=== PATIENT | male | born 1945 | race Caucasian/White ===

== ENCOUNTER → 2016-08-08 | Outpatient (CLI) | payer BC ==
[2016-07-26 09:51] LABS: BLOOD UREA NITROGEN 13 mg/dl (7-18); CREATININE 0.89 mg/dl (0.60-1.40)
[~2016-08-08] MED LIST: ASPI81TA28 PO; ATOR10TA88 PO; CIPR-255 PO; DICL75TA2 PO; DILT300C35 PO; DIPH-437 PO; LEVO175T3 PO; LSN/10125 PO; MULT-506 PO; OPTIRAY 320 IV PRN; VTMD1000 PO
--- NOTE | 2016-08-08 09:57 | DIAGNOSTIC IMAGING REPORT ---
ABDOMEN AND PELVIS CT WITH AND WITHOUT IV CONTRAST, UROGRAM PROTOCOL CT DOSE: 1777.78 mGy.cm HISTORY: Bladder cancer. TECHNIQUE: Multiaxial CT images of the abdomen and pelvis were performed both before and after the use of intravenous contrast to evaluate the urinary system. Maximal intensity projection images were performed at the workstation by the radiologist. COMPARISON STUDY: IVP 02/17/2016. Abdomen and pelvis CT 12/15/2014. FINDINGS: No renal or ureteral calculi. No hydronephrosis. No suspicious filling defects seen within the bilateral renal collecting systems, ureters, or bladder. The lung bases are clear. The liver, spleen, gallbladder, pancreas, kidneys, and adrenal glands are within normal limits. No bowel wall thickening or obstruction. The pelvic organs are unremarkable. No suspicious lytic or blastic osseous lesions. Tiny fat-containing umbilical hernia. Small fat-containing bilateral inguinal hernias. Colonic diverticulosis. Mild mesenteric fat stranding and a few prominent mesenteric lymph nodes are similar to the prior study. This favors a mild mesenteric panniculitis. IMPRESSION: 1. No renal or ureteral stones. No hydronephrosis. 2. No suspicious filling defects seen within the opacified bilateral renal collecting systems, ureters, or bladder. Electronically signed by: Francisco Ritchie M.D. 08/08/2016 9:56 AM Dictated Date/Time: 08/08/2016 9:48 AM
== END | disposition home or self-care (01) ==
LOC: C.CTS 09:11
PROVIDERS: ATTEND Urology
DX: C66.9 Malignant neoplasm of unspecified ureter (principal)

== ENCOUNTER → 2017-02-13 | Outpatient (CLI) | payer BC ==
[~2017-02-13] MED LIST changes: -OPTIRAY 320 IV PRN
[2017-02-13 09:59] LABS: BLOOD UREA NITROGEN 15 mg/dl (7-18); BUN/CREATININE RATIO 17.6 (10-20); CREATININE 0.86 mg/dl (0.60-1.40)
--- NOTE | 2017-02-23 12:14 | CODING QUERY MEDICAL NECESSITY ---
SUPPORTING DIAGNOSIS NEEDED A supporting diagnosis is required for the test/procedure performed on this patient in order for us to be reimbursed by the patient's insurance. Please provide a supporting diagnosis for the following test/procedure listed below next to the test name along with your signature. *If there is no additional diagnosis for this patient that would support the following test/procedure please document that below next to the test/procedure. Test(s)/Procedure(s) that require a supporting diagnosis: * PSA DIAGNOSIS: Provider Signature: Date: Thank you Annamarie Cruz [employer] Information Management Once completed, please kindly fax back to [phone] For questions please call [phone]
== END | disposition home or self-care (01) ==
LOC: C.LAB 08:07
PROVIDERS: ATTEND Urology
DX: C66.9 Malignant neoplasm of unspecified ureter (principal)

== ENCOUNTER → 2017-02-17 | Outpatient (CLI) | payer BC ==
[~2017-02-17] MED LIST changes: +OPTIRAY 300 IV PRN
--- NOTE | 2017-02-17 14:32 | DIAGNOSTIC IMAGING REPORT ---
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 This is unaltered from the prior study. Nephrograms are symmetric. Visualized components of the ureters are unremarkable. There are no significant filling defects within the renal collecting systems. Bladder is unchanged in configuration compared to the prior studies. There are no significant filling defects. There is no significant and/or only minimal post void residual. IMPRESSION: Negative study. No change from the prior exam. The above report was generated using voice recognition software. It may contain grammatical, syntax or spelling errors. Electronically signed by: Sylvester Nichols M.D. 02/17/2017 2:27 PM Dictated Date/Time: 02/17/2017 2:22 PM
== END | disposition home or self-care (01) ==
LOC: C.RAD 13:04
PROVIDERS: ATTEND Urology
DX: C66.9 Malignant neoplasm of unspecified ureter (principal)

== ENCOUNTER 2022-12-07 17:48 | Inpatient (IN) ==
--- NOTE | 2022-12-07 18:00 | ED Triage Note ---
Date of Service December 07, 2022 History of Present Illness This patient was briefly evaluated while in triage. An abbreviated physical exam was performed. This patient is a 77-year-old Male who presents to the ED for evaluation. History is vague. Pt saw family doctor at [facility] and sent to ER for evaluation. Had some flu like symptoms over the weekend. Physical Exam Limited Triage Exam: VITALS: Vitals are noted on the nurse's note and reviewed by myself. Vital signs stable. GENERAL: White male in no acute distress and resting comfortably. Patient is cooperative with the examination. HEART: Tachy with irregular irregular LUNGS: Clear to auscultation bilaterally without wheezes, rales or rhonchi. No retractions or accessory muscle use. NEURO: Patient was alert and oriented to person place and time. CN II through XII grossly intact. Initial orders for labs and / or imaging were placed and patient was placed in the waiting area until a bed is available. Please see further documentation for the full ED course. MDM / Impression Impression Impression: Atrial fibrillation, new onset, Thrombocytopenia, Leukopenia, Weakness, Hyponatremia Impression: Leukopenia Qualifiers: Leukopenia type: neutropenia Neutropenia type: unspecified Qualified Code(s): D70.9 - Neutropenia, unspecified
--- NOTE | 2022-12-07 18:09 | Emergency Department Note ---
Impression & Plan Atrial fibrillation, new onset, Thrombocytopenia, Leukopenia, Weakness, Hyponatremia ED Provider Note NAME: SAUL PRABHAKAR JR AGE: 77 SEX: M : 1945 ARRIVES VIA: Walk-In INFORMANT: [Patient][, ] ED PROVIDER(S): [Douglas Henry MD] CHIEF COMPLAINT: Outpatient referral, concern for heartbeat MEDICAL DECISION MAKING: Patient presents as an outpatient referral. Patient did have an IV established blood work was obtained along with an EKG troponin chest x-ray. The patient is noted to be in A-fib which is new for the patient. The patient was ordered IV fluids. The patient does have leukopenia and thrombocytopenia with associated hyponatremia. This may be tickborne in nature. The patient was ordered empiric doxycycline. Phosphorus also ordered for replete meant. I did inform the patient of the findings. The patient does state that he does have a history of tick bites. I did speak the on-call hospitalist service Dr. Womack and the patient was admitted to the medicine service. Heparin drip deferred at this time given the patient's thrombocytopenia and in discussion with the admitting service. Prior /Outside records reviewed: I did review a urology visit from Dr. Mancilla. Patient does have a known history of ureter malignant neoplasm of bladder cancer. Differential diagnosis: Infection, dehydration, metabolic abnormality, hypo/hyperglycemia, electrolyte disturbance, anemia, hypoxia, irregular heartbeats, pharyngitis among others were considered Diagnostics, as interpreted by me: ECG: A-fib, rate of 108, wide QRS, left bundle branch block pattern. Cardiac monitoring: An order was placed for continuous cardiac monitoring. The monitor shows a rate of 102 with tachycardic and irregularly irregular rhythm. Patient was placed on pulse oximetry Medical decision rules: [id number] score Imaging studies: See below I informally reviewed the patient's chest x-ray. Right-sided elevation of the hemidiaphragm but no obvious pneumothorax. HPI: Patient presents as an outpatient referral due to concern for an abnormal finding after being seen in the outpatient setting today. The patient did have an EKG chest x-ray and blood work completed earlier today. The patient was unsu re as to exactly what it was but it could have been due to the irregular heartbeat. Patient denies any prior history of any A-fib. Patient denies any falls or trauma. The patient is noted to be exceptionally weak since Monday with associated sore throat. No cough or fever. The patient does notice that he is had significant difficulty with just getting up to walk because he feels so weak. Patient denies any chest pains. The patient has no orthopnea. No leg swelling. Patient does not take any blood thinner medications but does have a prior history of PEs. PAST MEDICAL HISTORY: See Below PAST SURGICAL HISTORY: See Below SOCIAL HISTORY: See Below HOME MEDICATIONS: See Below ALLERGIES: See Below VITALS: See Below PHYSICAL EXAMINATION: GENERAL: NAD, non-toxic. EYE EXAM: Normal conjunctiva. PERRL, no anisocoria and EOM's grossly intact w/o pain. Oropharynx: Posterior pharynx is clear with no tonsillar or uvular deviation. NECK: Supple, no nuchal rigidity, no adenopathy, non-tender. No signs of meningismus. FROM of the neck with good chin to chest and neck extension. No stridor. LUNGS: Clear to auscultation. Normal chest wall mechanics. HEART: Tachycardic and irregular irregular, no MRG. ABDOMEN: Abdomen soft, non-tender, no masses, no rebound or guarding. BACK: No CVA TTP. SKIN: No rashes and no bruising. UPPER EXTREMITIES: Upper extremities are grossly normal. LOWER EXTREMITIES: Grossly normal, no edema. Negative Homans' sign bilaterally. NEURO EXAM: A&O x3, cranial nerves II-XII grossly intact, normal speech, moves all 4 extremities. Past Med/Surg History Medical History Bladder cancer 2007 and has hgb treatment, Chronic back pain Hyperlipidemia Hypertension Hypothyroidism Surgical History H/O eye surgery History of carpal tunnel surgery of left wrist History of carpal tunnel surgery of right wrist History of cystoscopy TURBT Hx of colonoscopy (09/2020) S/P surgical removal of pilonidal cyst Status post surgical removal and fulguration of bladder neoplasm Family History Aunt Breast cancer Cancer Mother Diabetes Hypertension Stroke Grandmother Diabetes Father Heart disease Brother Hypertension Other Colorectal cancer Social History Smoking Status: Former smoker packs per day: 0.5; Second Hand Exposure: No; Do You Dip or Chew Tobacco: No; Hx Alcohol Use: Yes Alcohol type: beer Hx Substance Use: No Preferred Language: Macedonian Communication Ability: Effective Visual Impairment: No Limitations Hat Band Attacher Required: No Beliefs That Will Affect Care: None marital status: Current Living Situation: Spouse current occupational status: retired How many Children do You have: 2 Other Information That Helps Us Care for You: No Feels Safe at Home: Yes Safety Concerns: Feels Safe At This Time Diet: regular during the past year weight has: remained stable Assistive Devices: Denture - Upper, Denture - Lower, Glasses and Hearing Aid - Bilateral Allergies Allergies Allergy/AdvReac Type Severity Reaction Status Date / Time No Known Allergies Allergy Unknown Verified 12/07/22 19:45 Home Meds Home Medications Medication Instructions Recorded Confirmed phenazopyridine 100 mg tablet 100 mg PO TID PRN Pain 12/02/19 12/07/22 (Pyridium) aspirin 81 mg tablet,delayed 81 mg PO QAM 03/05/20 12/07/22 release (Elayne Low Dose Aspirin) atorvastatin 20 mg tablet 10 mg PO HS 03/10/20 12/07/22 cholecalciferol (vitamin D3) 50 50 mcg PO QAM 03/10/20 12/07/22 mcg (2,000 unit) capsule (Vitamin D3) diltiazem HCl 300 mg 300 mg PO QAM 03/10/20 12/07/22 tablet,extended release 24 hr garlic 1,000 mg capsule 1,000 mg PO QAM 03/10/20 12/07/22 multivitamin 2 tab PO QAM 03/10/20 12/07/22 levothyroxine 200 mcg tablet 200 mcg PO QAM 12/07/22 12/07/22 lisinopril 10 0.5 tab PO DAILY 12/07/22 12/07/22 mg-hydrochlorothiazide 12.5 mg tablet vit C-vit [id number] 1 cap PO BID 12/07/22 12/07/22 3 100 mg-15 unit-2 mg-100 mg capsule Previous Rx's Medication Instructions Recorded tamsulosin 0.4 mg capsule 0.4 mg PO DAILY #90 caps 09/26/22 Results & Data (ED) Vital Signs Vital Signs - 24 hr 12/07/22 17:57 12/07/22 18:15 12/07/22 18:23 Temperature 36.1 C L Temperature Source Temporal Artery Scan Pulse Rate 96 H 94 H Pulse Rate [Apical] Pulse Rate from SpO2 Sensor Respiratory Rate 18 Respiratory Effort / Characteristics Non-Labored Spontaneous Respiratory Depth Normal Blood Pressure 142/75 H Blood Pressure [Right Arm] Blood Pressure Mean 97 Blood Pressure Mean [Right Arm] Pulse Oximetry 94 95 Oxygen Delivery Method Room Air Room Air Sepsis Recent Fever Within 48 Hours Yes Sepsis New/Unexplained Change in Mental Status N/A Sepsis Action Taken by Nursing No Action Required 12/07/22 18:22 12/07/22 18:30 12/07/22 18:40 Temperature Temperature Source Pulse Rate 98 H 98 H 91 H Pulse Rate [Apical] Pulse Rate from SpO2 Sensor 97 H 94 H 90 Respiratory Rate 24 20 23 Respiratory Effort / Characteristics Respiratory Depth Blood Pressure Blood Pressure [Right Arm] Blood Pressure Mean Blood Pressure Mean [Right Arm] Pulse Oximetry 93 93 95 Oxygen Delivery Method Sepsis Recent Fever Within 48 Hours Sepsis New/Unexplained Change in Mental Status Sepsis Action Taken by Nursing 12/07/22 18:46 12/07/22 18:46 12/07/22 19:00 Temperature Temperature Source Pulse Rate 94 H Pulse Rate [Apical] 89 Pulse Rate from SpO2 Sensor 93 H Respiratory Rate 15 16 Respiratory Effort / Characteristics Non-Labored Respiratory Depth Normal Blood Pressure 132/80 Blood Pressure [Right Arm] 135/69 Blood Pressure Mean 97 Blood Pressure Mean [Right Arm] 91 Pulse Oximetry 94 96 Oxygen Delivery Method Room Air Sepsis Recent Fever Within 48 Hours Sepsis New/Unexplained Change in Mental Status Sepsis Action Taken by Nursing 12/07/22 18:50 12/07/22 19:00 12/07/22 19:00 Temperature Temperature Source Pulse Rate 88 94 H Pulse Rate [Apical] Pulse Rate from SpO2 Sensor 89 95 H Respiratory Rate 22 17 Respiratory Effort / Characteristics Respiratory Depth Blood Pressure 135/69 Blood Pressure [Right Arm] Blood Pressure Mean 91 Blood Pressure Mean [Right Arm] Pulse Oximetry 93 94 Oxygen Delivery Method Sepsis Recent Fever Within 48 Hours Sepsis New/Unexplained Change in Mental Status Sepsis Action Taken by Nursing 12/07/22 19:19 12/07/22 19:20 12/07/22 19:30 Temperature Temperature Source Pulse Rate 92 H 102 H Pulse Rate [Apical] Pulse Rate from SpO2 Sensor 89 101 H Respiratory Rate 15 15 Respiratory Effort / Characteristics Respiratory Depth Blood Pressure 136/82 Blood Pressure [Right Arm] Blood Pressure Mean 100 Blood Pressure Mean [Right Arm] Pulse Oximetry 95 96 Oxygen Delivery Method Sepsis Recent Fever Within 48 Hours Sepsis New/Unexplained Change in Mental Status Sepsis Action Taken by Nursing 12/07/22 19:30 12/07/22 19:40 12/07/22 19:50 Temperature Temperature Source Pulse Rate 92 H 100 H 89 Pulse Rate [Apical] Pulse Rate from SpO2 Sensor 92 H 96 H 97 H Respiratory Rate 15 22 20 Respiratory Effort / Characteristics Respiratory Depth Blood Pressure Blood Pressure [Right Arm] Blood Pressure Mean Blood Pressure Mean [Right Arm] Pulse Oximetry 94 95 96 Oxygen Delivery Method Sepsis Recent Fever Within 48 Hours Sepsis New/Unexplained Change in Mental Status Sepsis Action Taken by Nursing 12/07/22 20:00 12/07/22 20:00 12/07/22 20:10 Temperature Temperature Source Pulse Rate 91 H 94 H Pulse Rate [Apical] Pulse Rate from SpO2 Sensor 94 H 100 H Respiratory Rate 23 22 Respiratory Effort / Characteristics Respiratory Depth Blood Pressure 159/99 H Blood Pressure [Right Arm] Blood Pressure Mean 119 Blood Pressure Mean [Right Arm] Pulse Oximetry 96 96 Oxygen Delivery Method Sepsis Recent Fever Within 48 Hours Sepsis New/Unexplained Change in Mental Status Sepsis Action Taken by Skilled Nursing Medications Current Medication List: was personally reviewed by me Laboratory Data Attestation: I reviewed the patient's lab results. 12/07/22 18:10 12/07/22 18:10 Lab Results 12/07/22 12/07/22 12/07/22 Range/Units 18:10 18:10 18:10 WBC 1.81 L (4.8-10.8) K/ul RBC 4.86 (4.70-6.10) M/uL Hgb 14.8 (14.0-18.0) g/dl Hct 40.8 L (42.0-52.0) % MCV 84.0 (80.0-100.0) fL MCH 30.5 (25.0-34.0) pg MCHC 36.3 H (32.0-36.0) g/dL RDW Std Deviation 37.0 (36.4-46.3) fL RDW Coeff of Jose 12.2 (11.5-14.5) % Plt Count 54 L (130-400) K/uL MPV 12.1 (9.4-12.4) fL Immature Gran % (Auto) 0.6 % Neut % (Auto) 40.2 % Lymph % (Auto) 46.4 % [place] % (Auto) 12.2 % Eos % (Auto) 0.0 % Baso % (Auto) 0.6 % Neut # (Auto) 0.73 L* (1.40-6.50) K/uL Lymph # (Auto) 0.84 L (1.2-3.4) K/uL [place] # (Auto) 0.22 (0.11-0.59) K/uL Eos # (Auto) 0.00 (0-0.50) K/uL Baso # (Auto) 0.01 (0-0.2) K/uL Immature Gran # (Auto) 0.01 (0.01-0.20) K/uL PT 11.6 (9.0-12.0) Seconds INR 1.1 (0.9-1.1) APTT 28.5 (21.0-31.0) Seconds PTT Ratio 1.0 Sodium 128 L (136-145) mmol/L Potassium 3.7 (3.5-5.1) mmol/L Chloride 97 L (98-107) mmol/L Carbon Dioxide 23 (21-32) mmol/L Anion Gap 8 (3-11) BUN 15 (6-23) mg/dl Creatinine 0.93 (0.6-1.4) mg/dl Est Cr Clr Drug Dosing 83.0 ml/min Est GFR ( Amer) 91.5 ml/min Est GFR (Non-Af Amer) 78.9 ml/min BUN/Creatinine Ratio 16.1 (10-20) Glucose 139 H (70-99(Fasting)) mg/dl Calcium 8.7 (8.6-10.3) mg/dl Phosphorus 2.4 L (2.5-4.9) mg/dl Magnesium 1.9 (1.7-2.4) mg/dl Total Bilirubin 0.7 (0.2-1.0) mg/dl AST 60 H (13-39) U/L ALT 36 (7-52) U/L Alkaline Phosphatase 68 (34-104) U/L Troponin I High Sens 12.2 (0-20) pg/ml Total Protein 7.4 (6.0-8.3) gm/dl Albumin 4.0 (3.4-5.0) gm/dl Globulin 3.4 (2.5-4.0) gm/dl Albumin/Globulin Ratio 1.2 (0.9-2) Lipase 13 (11-82) U/L TSH (0.300-4.500) uIu/ml Urine Color Urine Appearance (Clear) Urine pH (4.5-7.5) Ur Specific [place] (1.000-1.030) Urine Protein (Negative) Urine Glucose (UA) (Negative) Urine Ketones (Negative) Urine Blood (Negative) Urine Nitrite (Negative) Urine Bilirubin (Negative) Urine Urobilinogen (Negative) Ur Leukocyte Esterase (Negative) Urine WBC (Auto) (0-5) /hpf Urine RBC (Auto) (0-4) /hpf U Hyaline Cast (Auto) (0-5) /lpf U Epithel Cells (Auto) (0-5) /lpf Urine Bacteria (Auto) (Negative) Urine Osmolality (500-800) mOsm/kg Urine Sodium mmol/L Urine Potassium mmol/L Urine Chloride mmol/L Anaplasma Smear SARS-CoV-2, RNA, NAAT (NEGATIVE) 12/07/22 12/07/22 12/07/22 Range/Units 18:10 18:10 18:10 WBC (4.8-10.8) K/ul RBC (4.70-6.10) M/uL Hgb (14.0-18.0) g/dl Hct (42.0-52.0) % MCV (80.0-100.0) fL MCH (25.0-34.0) pg MCHC (32.0-36.0) g/dL RDW Std Deviation (36.4-46.3) fL RDW Coeff of Jose (11.5-14.5) % Plt Count (130-400) K/uL MPV (9.4-12.4) fL Immature Gran % (Auto) % Neut % (Auto) % Lymph % (Auto) % [place] % (Auto) % Eos % (Auto) % Baso % (Auto) % Neut # (Auto) (1.40-6.50) K/uL Lymph # (Auto) (1.2-3.4) K/uL [place] # (Auto) (0.11-0.59) K/uL Eos # (Auto) (0-0.50) K/uL Baso # (Auto) (0-0.2) K/uL Immature Gran # (Auto) (0.01-0.20) K/uL PT (9.0-12.0) Seconds INR (0.9-1.1) APTT (21.0-31.0) Seconds PTT Ratio Sodium (136-145) mmol/L Potassium (3.5-5.1) mmol/L Chloride (98-107) mmol/L Carbon Dioxide (21-32) mmol/L Anion Gap (3-11) BUN (6-23) mg/dl Creatinine (0.6-1.4) mg/dl Est Cr Clr Drug Dosing ml/min Est GFR ( Amer) ml/min Est GFR (Non-Af Amer) ml/min BUN/Creatinine Ratio (10-20) Glucose (70-99(Fasting)) mg/dl Calcium (8.6-10.3) mg/dl Phosphorus (2.5-4.9) mg/dl Magnesium (1.7-2.4) mg/dl Total Bilirubin (0.2-1.0) mg/dl AST (13-39) U/L ALT (7-52) U/L Alkaline Phosphatase (34-104) U/L Troponin I High Sens (0-20) pg/ml Total Protein (6.0-8.3) gm/dl Albumin (3.4-5.0) gm/dl Globulin (2.5-4.0) gm/dl Albumin/Globulin Ratio (0.9-2) Lipase (11-82) U/L TSH 2.289 (0.300-4.500) uIu/ml Urine Color Urine Appearance (Clear) Urine pH (4.5-7.5) Ur Specific [place] (1.000-1.030) Urine Protein (Negative) Urine Glucose (UA) (Negative) Urine Ketones (Negative) Urine Blood (Negative) Urine Nitrite (Negative) Urine Bilirubin (Negative) Urine Urobilinogen (Negative) Ur Leukocyte Esterase (Negative) Urine WBC (Auto) (0-5) /hpf Urine RBC (Auto) (0-4) /hpf U Hyaline Cast (Auto) (0-5) /lpf U Epithel Cells (Auto) (0-5) /lpf Urine Bacteria (Auto) (Negative) Urine Osmolality (500-800) mOsm/kg Urine Sodium mmol/L Urine Potassium mmol/L Urine Chloride mmol/L Anaplasma Smear See Comment SARS-CoV-2, RNA, NAAT NEGATIVE (NEGATIVE) 12/07/22 12/07/22 12/07/22 Range/Units 19:20 19:20 19:20 WBC (4.8-10.8) K/ul RBC (4.70-6.10) M/uL Hgb (14.0-18.0) g/dl Hct (42.0-52.0) % MCV (80.0-100.0) fL MCH (25.0-34.0) pg MCHC (32.0-36.0) g/dL RDW Std Deviation (36.4-46.3) fL RDW Coeff of Jose (11.5-14.5) % Plt Count (130-400) K/uL MPV (9.4-12.4) fL Immature Gran % (Auto) % Neut % (Auto) % Lymph % (Auto) % [place] % (Auto) % Eos % (Auto) % Baso % (Auto) % Neut # (Auto) (1.40-6.50) K/uL Lymph # (Auto) (1.2-3.4) K/uL [place] # (Auto) (0.11-0.59) K/uL Eos # (Auto) (0-0.50) K/uL Baso # (Auto) (0-0.2) K/uL Immature Gran # (Auto) (0.01-0.20) K/uL PT (9.0-12.0) Seconds INR (0.9-1.1) APTT (21.0-31.0) Seconds PTT Ratio Sodium (136-145) mmol/L Potassium (3.5-5.1) mmol/L Chloride (98-107) mmol/L Carbon Dioxide (21-32) mmol/L Anion Gap (3-11) BUN (6-23) mg/dl Creatinine (0.6-1.4) mg/dl Est Cr Clr Drug Dosing ml/min Est GFR ( Amer) ml/min Est GFR (Non-Af Amer) ml/min BUN/Creatinine Ratio (10-20) Glucose (70-99(Fasting)) mg/dl Calcium (8.6-10.3) mg/dl Phosphorus (2.5-4.9) mg/dl Magnesium (1.7-2.4) mg/dl Total Bilirubin (0.2-1.0) mg/dl AST (13-39) U/L ALT (7-52) U/L Alkaline Phosphatase (34-104) U/L Troponin I High Sens (0-20) pg/ml Total Protein (6.0-8.3) gm/dl Albumin (3.4-5.0) gm/dl Globulin (2.5-4.0) gm/dl Albumin/Globulin Ratio (0.9-2) Lipase (11-82) U/L TSH (0.300-4.500) uIu/ml Urine Color Yellow Urine Appearance Clear (Clear) Urine pH 6.0 (4.5-7.5) Ur Specific [place] 1.010 (1.000-1.030) Urine Protein Trace H (Negative) Urine Glucose (UA) Negative (Negative) Urine Ketones Negative (Negative) Urine Blood 1+ H (Negative) Urine Nitrite Negative (Negative) Urine Bilirubin Negative (Negative) Urine Urobilinogen Negative (Negative) Ur Leukocyte Esterase Negative (Negative) Urine WBC (Auto) 0 (0-5) /hpf Urine RBC (Auto) 0-4 (0-4) /hpf U Hyaline Cast (Auto) 0 (0-5) /lpf U Epithel Cells (Auto) 0-5 (0-5) /lpf Urine Bacteria (Auto) Negative (Negative) Urine Osmolality 274 L (500-800) mOsm/kg Urine Sodium 32 mmol/L Urine Potassium 12.6 mmol/L Urine Chloride 35 mmol/L Anaplasma Smear SARS-CoV-2, RNA, NAAT (NEGATIVE) Administered Medications Atorvastatin Calcium (Atorvastatin 10 Mg Tab) 10 mg PO HS CARMEN Stop: 01/06/23 21:29 Last Admin: 12/07/22 22:29 Dose: 10 mg Documented By: JERSON Discontinued Medications Doxycycline Hyclate (Doxycycline Hyclate 100 Mg Cap) 100 mg PO NOW STA Stop: 12/07/22 19:22 Last Admin: 12/07/22 19:33 Dose: 100 mg Documented By: MATILDA Sodium Chloride (Nss 1000ml) 500 mls @ 999 mls/hr IV .Q31M ONE Stop: 12/07/22 19:53 Last Infusion: 12/07/22 20:06 Dose: 0 mls/hr Documented By: Admin: 12/07/22 19:33 Dose: 999 mls/hr Documented By: MATILDA Menthol (Cough Drop (Sugar Free) Galindo 24 Galindo/1 Box) 1 galindo BUCCAL NOW STA Stop: 12/07/22 19:13 Last Admin: 12/07/22 19:26 Dose: 1 galindo Documented By: MATILDA Potassium Phosphate (Pot Phosphate Monobasic W/ Sod Tab) 2 tab PO NOW STA Stop: 12/07/22 19:22 Last Admin: 12/07/22 19:33 Dose: 2 tab Documented By: MATILDA Discharge Plan Visit Data Chief Complaint: Abnormal Labs/Diagnostic Testing Stated Complaint: REF BY DOC,HEART RATE OFF ED Provider: Douglas Henry Discharge Problem: Atrial fibrillation, new onset, Thrombocytopenia, Leukopenia, Weakness, Hyponatremia Patient Disposition: Admitted As Inpatient Discharge Instructions Interventions: ED Discharge Assessment Last Done: 12/07/22 20:48
[2022-12-07 18:45] LABS: Albumin Globulin Ratio 1.2 (0.9-2); BUN Creatinine Ratio 16.1 (10-20); Bilirubin,Total 0.7 mg/dl (0.2-1.0); Calcium 8.7 mg/dl (8.6-10.3); Est GFR (African American) 91.5 ml/min; Est GFR (Non-African American) 78.9 ml/min; Globulin 3.4 gm/dl (2.5-4.0); Magnesium 1.9 mg/dl (1.7-2.4); Phosphorus 2.4 mg/dl (2.5-4.9); Potassium 3.7 mmol/L (3.5-5.1); Total Protein 7.4 gm/dl (6.0-8.3)
[2022-12-07 18:51] LABS: Troponin I High Sensitivity 12.2 pg/ml (0-20)
[2022-12-07 18:54] LABS: Hematocrit (blood only) 40.8 % (42.0-52.0); Hemoglobin 14.8 g/dl (14.0-18.0); INR 1.1 (0.9-1.1); Mean Corpuscular Hemoglobin 30.5 pg (25.0-34.0); Mean Corpuscular Hgb Conc 36.3 g/dL (32.0-36.0); Mean Platelet Volume 12.1 fL (9.4-12.4); Partial Thromboplastin Time 28.5 Seconds (21.0-31.0); Platelet Count 54 K/uL (130-400); Prothrombin Time 11.6 Seconds (9.0-12.0); RDW Coefficient of Variation 12.2 % (11.5-14.5); Red Blood Count 4.86 M/uL (4.70-6.10); White Blood Count 1.81 K/ul (4.8-10.8)
[2022-12-07] MEDS ORDERED: COUGH DROP (SUGAR FREE) LOZ 24 LOZ/1 BOX BUCCAL STA (19:12)
[2022-12-07] MEDS ORDERED: DOXYCYCLINE HYCLATE 100 MG CAP PO STA (19:21)
[2022-12-07] MEDS ORDERED: POT PHOSPHATE MONOBASIC W/ SOD TAB PO STA (19:21)
[2022-12-07] MEDS ORDERED: SODIUM CHLORIDE 0.9% 1000ML 500 ML IV ONE (19:23)
[2022-12-07 19:31] LABS: Basophils # (auto) 0.01 K/uL (0-0.2); Basophils % (auto) 0.6 %; Immature Granulocytes # (auto) 0.01 K/uL (0.01-0.20); Immature Granulocytes % (auto) 0.6 %; Lymphocytes # (auto) 0.84 K/uL (1.2-3.4); Lymphocytes % (auto) 46.4 %; Monocytes # (auto) 0.22 K/uL (0.11-0.59); Monocytes % (auto) 12.2 %; Neutrophils # (auto) 0.73 K/uL (1.40-6.50); Neutrophils % (auto) 40.2 %
[2022-12-07 19:42] LABS: Appearance Urine Clear (Clear); Bacteria Urine Automated Negative (Negative); Bilirubin Urine Negative (Negative); Blood Urine 1+ (Negative); Cast Urine Automated 0 /lpf (0-5); Color Urine Yellow; Epithelial Cell Urine Auto 0-5 /lpf (0-5); Glucose Urine UA Negative (Negative); Ketones Urine Negative (Negative); Leukocyte Esterase Urine Negative (Negative); Nitrite Urine Negative (Negative); Protein Urine Trace (Negative); RBC Urine Automated 0-4 /hpf (0-4); Urobilinogen Urine Negative (Negative); WBC Urine Automated 0 /hpf (0-5)
[2022-12-07 19:53] LABS: Urine Potassium 12.6 mmol/L
[2022-12-07] MEDS ORDERED: DOXYCYCLINE HYCLATE 100 MG in DEXTROSE 5% 100 ML IV SCH (20:30)
--- NOTE | 2022-12-07 20:43 | History & Physical Report ---
Date of Service December 07, 2022 Assessment & Plan (1) Afib: Plan: 77yo Male with PMH bladder cancer, DVT, HTN, hypothyroidism HLD here for weakness afib referred by PCP. Afib -noted by PCP on ekg, new onset -Phos 2.4, ED gave 2 tab potassium phosphate -EKG:pending -CXR: No acute cardiopulmonary findings. -trend Mg, Phos, K, replete as needed -PRN metoprolol IV as needed for rate control Neutropenia, Thrombocytopenia -WBC 1.81, low neutrophil count -platelet 54 -ordered neutropenic precautions -peripheral smear pending -blood culture pending -ordered tick panel anaplasma smear negative -reticulocyte count pending -Received doxycycline in ED -continue empiric doxycycline for now -PRN tylenol for fevers -avoid blood thinners at this time, ASA on hold Hyponatremia -Na 128 -possible from polydipsia -received 500ml NSS in ED -serum osm pending -urine osm 274 -trend BMP HTN, HLD -continue diltiazem, lisinopril-HCTZ -continue atorvastatin Hx. Bladder Cancer -continue tamsulosin FENa: regular Code Status: Full DVT PPX: SCDs Dispo: PCU/Kinga Cintron D.O. PGY 3, FCM (2) Thrombocytopenia: (3) Leukopenia: (4) Bladder cancer: (5) Hypertension: (6) Fatigue: History of Present Illness Chief Complaint: Afib Primary Care Provider: Sierra Garrett MD 77yo Male with PMH bladder cancer, DVT, HTN, hypothyroidism HLD here for weakness afib referred by PCP. Patient states on monday he was helping someone move houses, on monday began feeling unwell describes feeling fatigue headache felt too weak to get out of his chair, low appetite, alternating fever and chills with night sweats. States he also felt constipated, was drinking lots of water however did not start urinating more frequently until today. He saw his PCP today who ordered EKG CXR, later received phone call to go to the ED. At this time he feels slightly better, denies SOB nausea pain rashes at this time. Patient states he is a fairly active person at baseline walks his dog daily no SOB at baseline. He describes high tick exposure. Denies any hematuria. States his history of DVT was never treated with blood thinners as he was afraid of bleeding out in the spring. POA is . Allergies Allergy/AdvReac Type Severity Reaction Status Date / Time No Known Allergies Allergy Unknown Verified 12/07/22 19:45 Home Medications Medication Instructions Recorded Confirmed Type phenazopyridine 100 mg tablet 100 mg PO TID PRN Pain 12/02/19 12/07/22 History (Pyridium) aspirin 81 mg tablet,delayed 81 mg PO QAM 03/05/20 12/07/22 History release (Elayne Low Dose Aspirin) atorvastatin 20 mg tablet 10 mg PO HS 03/10/20 12/07/22 History cholecalciferol (vitamin D3) 50 50 mcg PO QAM 03/10/20 12/07/22 History mcg (2,000 unit) capsule (Vitamin D3) garlic 1,000 mg capsule 1,000 mg PO QAM 03/10/20 12/07/22 History multivitamin 2 tab PO QAM 03/10/20 12/07/22 History tamsulosin 0.4 mg capsule 0.4 mg PO DAILY #90 caps 09/26/22 12/07/22 Rx levothyroxine 200 mcg tablet 200 mcg PO QAM 12/07/22 12/07/22 History lisinopril 10 0.5 tab PO DAILY 12/07/22 12/07/22 History mg-hydrochlorothiazide 12.5 mg tablet vit C-vit Y-eiifec-ojiukmyx-omega 1 cap PO BID 12/07/22 12/07/22 History 3 100 mg-15 unit-2 mg-100 mg capsule apixaban 5 mg tablet (Eliquis) 5 mg PO BID #60 tabs 12/08/22 Rx doxycycline hyclate 100 mg capsule 100 mg PO BID@0700,1900 #18 caps 12/08/22 Rx metoprolol succinate 50 mg 50 mg PO DAILY #30 tabs 12/08/22 Rx tablet,extended release 24 hr Past Med/Surg History Medical History Bladder cancer 2007 and has hgb treatment, Chronic back pain Hyperlipidemia Hypertension Hypothyroidism Surgical History H/O eye surgery History of carpal tunnel surgery of left wrist History of carpal tunnel surgery of right wrist History of cystoscopy TURBT Hx of colonoscopy (09/2020) S/P surgical removal of pilonidal cyst Status post surgical removal and fulguration of bladder neoplasm Family History Aunt Breast cancer Cancer Mother Diabetes Hypertension Stroke Grandmother Diabetes Father Heart disease Brother Hypertension Other Colorectal cancer Social History Smoking Status: Former smoker packs per day: 0.5; Second Hand Exposure: No; Do You Dip or Chew Tobacco: No; Hx Alcohol Use: Yes Alcohol type: beer Hx Substance Use: No Preferred Language: Lebanese Communication Ability: Effective Visual Impairment: No Limitations Cattyman Required: No Beliefs That Will Affect Care: None marital status: Current Living Situation: Spouse current occupational status: retired How many Children do You have: 2 Feels Safe at Home: Yes Diet: regular during the past year weight has: remained stable Assistive Devices: None Physical Exam Constitutional: well developed, well nourished, cooperative and comfortable Eyes: PERRL, conjunctivae normal, anicteric sclerae ENMT: external ear and nose normal, oropharynx normal Neck: trachea midline, no thyromegaly Respiratory: normal respiratory effort, lungs clear to auscultation Cardiovascular: Rate/Rhythm: + irregularly irregular Gastrointestinal (Abdomen): Inspection/Auscultation: abdomen normal to inspection Percussion/Palpation: abdomen soft; abdomen nontender Skin: no rashes, warm and dry Results & Data Results & Data Vital Signs (Past 12 Hours) Vital Signs Temp Pulse Pulse Resp BP BP Pulse Ox 12/07/22 19:00 89 16 135/69 96 12/07/22 18:46 94 H 15 94 12/07/22 18:46 132/80 12/07/22 18:40 91 H 23 95 12/07/22 18:30 98 H 20 93 12/07/22 18:22 98 H 24 93 12/07/22 18:23 94 H 12/07/22 18:15 95 12/07/22 17:57 36.1 C L 96 H 18 142/75 H 94 O2 Del Method 12/07/22 19:00 Room Air 12/07/22 18:46 12/07/22 18:46 12/07/22 18:40 12/07/22 18:30 12/07/22 18:22 12/07/22 18:23 12/07/22 18:15 Room Air 12/07/22 17:57 Room Air Supervising Physician Co-Signing Physician Notes Attending addendum: I have physically seen this patient, have supervised the medical residents activities, and agree with the H&P unless as otherwise noted. Assessment and Plan: New onset Atrial fibrillation/hypertension- A-fib noted by PCP in office and referred to the ED The patient will be admitted to telemetry for serial cardiac enzymes, serial EKG's, cardiac rhythm monitoring and a 2-D echocardiogram with Dopplers. Optimize potassium to for target of 4, magnesium target of 2 Apixaban Neutropenia/thrombocytopenia- Admitted with neutropenic precautions Order peripheral smear Tick panel pending, with anaplasmosis smear negative Add reticulocyte count Question secondary to anaplasmosis, will continue empiric treatment with doxycycline for now Continue to follow Hyponatremia- Sodium 128, urine osmolality 274, serum osmolality 273 likely transient effect associated with fluid intake used as he was trying to replete himself after sweating Hypertension- Continue diltiazem and lisinopril Hold HCTZ Hyperlipidemia- continue atorvastatin Resident Activity Tracking Resident Involvement: Resident Care Provided Care Provided: Adult Hospital Medicine
[2022-12-07] MEDS ORDERED: POLYETHYLENE (MIRALAX) 17 GM PACK PO PRN (21:18)
[2022-12-07] MEDS ORDERED: ACETAMINOPHEN 325 MG TAB PO PRN (21:18)
[2022-12-07] MEDS ORDERED: ATORVASTATIN 10 MG TAB PO SCH (21:30)
[2022-12-07 21:31] LABS: Lyme Ab IgG w/WB Rflx Negative (Negative); Lyme Ab IgM w/WB Rflx Negative (Negative)
[2022-12-07 22:08] LABS: Reticulocyte % 1.3 % (0.5-2.0); Reticulocytes # 0.06 10^6/uL (0.02-0.10)
[2022-12-08] MEDS ORDERED: MELATONIN 3 MG TAB PO PRN (00:04)
[2022-12-08] MEDS ORDERED: diphenhydrAMINE Capsule 25 MG CAP PO PRN (00:49)
[2022-12-08] MEDS ORDERED: LEVOTHYROXINE SODIUM 200 MCG TABLET PO SCH (06:30)
[2022-12-08] MEDS: DOXYCYCLINE HYCLATE 100 MG CAP PO SCH ×2 (06:35→18:09)
--- NOTE | 2022-12-08 07:38 | XRay Report ---
XR chest 1V portable CLINICAL HISTORY: Chest pain, nonspecific COMPARISON STUDY: Chest radiograph December 07, 2022 at 2:21 PM. FINDINGS: Moderate elevation of the right hemidiaphragm is now noted. No pneumothorax or pleural effu lourdes is present. No consolidation. Cardiomediastinal silhouette is normal. No evidence for pulmonary edema. IMPRESSION: Interval development of elevation of the right hemidiaphragm. Otherwise, no change in ap pearance of the chest. ACT 112: Negative or not required by law. Electronically signed by: Isaac Vázquez M.D. 12/08/2022 7:37 AM
[2022-12-08 08:30] LABS: Hematocrit (blood only) 37.4 % (42.0-52.0); Hemoglobin 13.4 g/dl (14.0-18.0); Mean Corpuscular Hemoglobin 30.1 pg (25.0-34.0); Mean Corpuscular Hgb Conc 35.8 g/dL (32.0-36.0); Platelet Count 50 K/uL (130-400); RDW Coefficient of Variation 12.1 % (11.5-14.5); RDW Standard Deviation 36.8 fL (36.4-46.3); Red Blood Count 4.45 M/uL (4.70-6.10); White Blood Count 3.09 K/ul (4.8-10.8)
[2022-12-08 08:38] LABS: Albumin Globulin Ratio 1.3 (0.9-2); Albumin Level 3.7 gm/dl (3.4-5.0); BUN Creatinine Ratio 15.9 (10-20); Bilirubin,Total 0.6 mg/dl (0.2-1.0); Calcium 8.4 mg/dl (8.6-10.3); Creatinine Clr Calc Pharmacy 94.1 ml/min; Est GFR (African American) 98.9 ml/min; Est GFR (Non-African American) 85.3 ml/min; Globulin 2.9 gm/dl (2.5-4.0); Magnesium 1.8 mg/dl (1.7-2.4); Potassium 3.5 mmol/L (3.5-5.1); Total Protein 6.6 gm/dl (6.0-8.3)
[2022-12-08] MEDS ORDERED: dilTIAZem HCL 300 MG CAPCR PO SCH (09:00)
[2022-12-08] MEDS ORDERED: LISINOPRIL/HCTZ 10/12.5MG TAB PO SCH (09:00)
[2022-12-08] MEDS ORDERED: TAMSULOSIN HCL 0.4 MG CAP PO SCH (09:00)
[2022-12-08 09:12] LABS: ALC (manual) 1.39 K/uL (1.2-3.4); ANC (manual) 1.36 K/uL (1.4-6.5); Lymphocytes # (manual) 0.77 K/uL (1.2-3.4); Lymphocytes % (manual) 25 %; Metamyelocytes # (manual) 0.03 K/uL (0-0); Metamyelocytes % (manual) 1 %; Monocytes # (manual) 0.31 K/uL (0.11-0.59); Monocytes % (manual) 10 %; Neutrophils # (manual) 1.36 K/uL (1.40-6.50); Neutrophils % (manual) 44 %; RBC Morphology Unremarkable; Reactive Lymphocytes # (manual) 0.62 K/uL; Reactive Lymphocytes % (manual) 20 %
--- NOTE | 2022-12-08 11:14 | XCELERA ---
[id number]\[id number]
--- NOTE | 2022-12-08 15:32 | Hospitalist Progress Note ---
Date of Service December 08, 2022 Assessment & Plan (1) Afib: Plan: 77yo Male with PMH bladder cancer, DVT, HTN, hypothyroidism HLD here for weakness, afib referred by PCP. #Atrial Fibrillation Noted by PCP on ekg, new onset. Likely revealed vs. provoked by acute infection. -Phos 2.4>>3.0 -EKG: AFib, LBBB, wide QRS, tachycardia -CXR: No acute cardiopulmonary findings. -trend Mg, Phos, K, replete as needed -Change Diltiazem to Metropolol Succinate for rate control. -Recommend OutPt Cardio follow up #Neutropenia, Thrombocytopenia High pretest probability for anaplasma due to clinical picture (acute episode of fever, chills, nausea, and weakness) and high tick exposure. WBC 1.81, low neutrophil count, platelet 54 -neutropenic precautions -peripheral smear pending -blood culture pending -ordered tick panel anaplasma smear negative -reticulocyte count pending -Continue doxycycline -PRN tylenol for fevers -avoid blood thinners at this time, ASA on hold #HFrEF -Echo: EF 35-40%, global hypokineses Hyponatremia -Na 128 -possible from polydipsia -received 500ml NSS in ED -serum osm pending -urine osm 274 -trend BMP HTN, HLD -continue diltiazem, lisinopril-HCTZ -continue atorvastatin Hx. Bladder Cancer -continue tamsulosin FENa: regular Code Status: Full DVT PPX: SCDs Dispo: PCU/Kinga Cintron D.O. PGY 3, FCM Admission and Anticipated Discharge Date Admission Date: December 07, 2022 Subjective No acute events overnight. Today he had a headache and was improved with tylenol. He felt fatigue and weak but "not like it was". He does feel that he had an upset stomach over the weekend alongside his fevers and chills. Did report he has a FHx of heart disease with his father having a [place] at 47 and brother with valvular Afib. Review of Systems Constitutional: Denied fever, night sweats, dizziness. Endorses fatigue, weakness. Eyes: Denied blurry vision Respiratory: Denied cough or shortness of breath. Cardiovascular: Additional Comments: Denied chest pain, palpitations Gastrointestinal: Denied nausea, vomiting, diarrhea, abdominal pain. Genitourinary: no dysuria, no difficulty urinating or no urinary frequency Neurologic: Denied numbness, or tingling. Physical Exam Constitutional: Alert and oriented x3 in hopsital bed Eyes: Pupils were equal, normal shape. Neck: Respiratory: CTA, no increased work of breathing Cardiovascular: Tachycardic and Irregular rhythm. S1, S2, Radial pulses equal b/l. Capillary refill less than 2 sec. Gastrointestinal (Abdomen): Nondistended, nontender, normoactive bowel sounds. Musculoskeletal: Upper extremity 5/5 strength Lower extremity 5/5 strength Able to stand and ambulate on his own Skin: Warm dry, no apparent rashed. Psychiatric: Appropriate mood and affect. Lymphatic: No lymphadenopathy in the neck and cervical region. Results & Data Results & Data Vital Signs (Past 12 Hours) Vital Signs Temp Pulse Pulse Resp BP BP Pulse Ox 12/08/22 11:04 36.3 C L 99 H 18 117/74 95 12/08/22 08:23 98 H 12/08/22 06:59 36.8 C 99 H 19 125/81 93 12/08/22 04:00 36.5 C 93 H 20 118/73 91 O2 Del Method 12/08/22 11:04 Room Air 12/08/22 08:23 12/08/22 06:59 Room Air 12/08/22 04:00 Room Air
--- NOTE | 2022-12-08 16:33 | Discharge Summary ---
Date of Service December 08, 2022 Admission HPI Per Admitting Provider 77yo Male with PMH bladder cancer, DVT, HTN, hypothyroidism HLD here for weakness afib referred by PCP. Patient states on monday he was helping someone move houses, on monday began feeling unwell describes feeling fatigue headache felt too weak to get out of his chair, low appetite, alternating fever and chills with night sweats. States he also felt constipated, was drinking lots of water however did not start urinating more frequently until today. He saw his PCP today who ordered EKG CXR, later received phone call to go to the ED. At this time he feels slightly better, denies SOB nausea pain rashes at this time. Patient states he is a fairly active person at baseline walks his dog daily no SOB at baseline. He describes high tick exposure. Denies any hematuria. States his history of DVT was never treated with blood thinners as he was afraid of bleeding out in the spring. POA is . Principal Diagnosis Atrial Fibrillation Discharge Data Allergies Allergy/AdvReac Type Severity Reaction Status Date / Time No Known Allergies Allergy Unknown Verified 12/07/22 19:45 Consultations 12/07/22 19:21 ED Decision to Admit Stat Hospital Course (1) Afib: 77yo Male with PMH bladder cancer, DVT, HTN, hypothyroidism HLD admitted for weakness and PCP office ekg showing afib. 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 Labs showed WBC 1.81, low neutrophil count, platelet 54 Clinical presentation suggests anaplasmosis, treated empirically with doxycycline. Anaplasmosis smear was negative, PCR pending. Continuing with doxycycline regimen outpatient. Atrial Fibrillation Noted by PCP on ekg in office, new onset. Likely revealed vs. provoked by acute infection. In the ER, EKG: AFib, LBBB, wide QRS, tachycardia, CXR: No acute cardiopulmonary findings. Heart Rate: 115s, peak: 137 Treated with Diltiazem, switched to metoprolol succinate at discharge. HFrEF Echo: EF 35-40%, global hypokineses Recommended follow up with Cardiology for CAD evaluation, cath vs stress test. Chronic conditions: HTN, HLD -continue at home medications Hx of Bladder Cancer -continue tamsulosin (2) Leukopenia: (3) Thrombocytopenia: (4) Weakness: (5) Hyponatremia: (6) Fatigue: (7) Anaplasmosis: Total Time Total Time Spent Total Time Spent (In Minutes): >30 Discharge Plan Discharge Items Patient Disposition: Home - Self-Care Reason For Visit: AFIB Discharge Diagnosis: new onset afib, presumed tick borne illness Activity: Per Instructions section Non-emergency contact: Primary Care Provider Call non-emergency contact if: you have any medication questions, your symptoms worsen and you have a fever Follow-up/Referrals: Sierra Garrett MD [Primary Care Provider] - ([facility] to call you in am with appt.) Diet: Heart Healthy Addtl Attending Provider Instructions: You were admitted to the hospital for a new finding of atrial fibrillation (irregular heart rhythm) in association with a recent illness. Your white blood count and platelet count were found to be low- this appears most likely related to a probable tick borne illness. This recent infection most likely unmasked the irregular heart rhythm. Atrial fibrillation puts you at a higher risk of stroke. A discharge summary will be sent to your primary care physician to ensure continuity of care. Please bring this discharge summary with you to your next office appointment so that your provider can review it at that time. Medications: Your medication list has been reviewed and reconciled upon discharge to ensure accuracy and continuity of care. An updated list of all your medications is included with your hospital discharge paperwork. Please review this list closely and make note of any changes to your medications. - You have been prescribed the antibiotic doxycycline 100 mg twice per day for a total of 10 days. Your next dose will be tomorrow morning. - The medication to control your heart rate has also been switched. You were previously on diltiazem- you should stop taking this medication. You have now been switched to metoprolol 50 mg daily. - You have also been started on a blood thinner called eliquis. This is also to be taken twice per day. Follow up appointments: - Make a follow up appointment with your PCP within the next week. It is very important that you follow up with them shortly after discharge from the hospital. - Keep all of your follow up appointments as already scheduled. If you cannot make an appointment, notify your provider. CONTACT YOUR PRIMARY CARE PROVIDER if you experience any of the following: - Difficulty following your treatment plan - Difficulty taking any of your medications CALL 911 OR GO TO THE EMERGENCY DEPARTMENT if you experience any of the following: - Sudden, severe abdominal pain or nausea/vomiting - Severe chest pain or chest pain that radiates to your jaw or arm - Sudden, severe shortness of breath or difficulty breathing Pending Studies at Discharge: No Stand-Alone Forms: My [facility], Smoking Cessation Medications and DC Order Prescriptions: New doxycycline hyclate 100 mg Capsule 100 mg PO BID@0700,1900 Qty: 18 0RF Eliquis 5 mg tablet 5 mg PO BID Qty: 60 2RF metoprolol succinate 50 mg tablet extended release 24 hr 50 mg PO DAILY Qty: 30 2RF Continued tamsulosin 0.4 mg capsule 0.4 mg PO DAILY Qty: 90 3RF phenazopyridine [Pyridium] 100 mg tablet 100 mg PO TID PRN (Reason: Pain) aspirin [Elayne Low Dose Aspirin] 81 mg tablet,delayed release (DR/EC) 81 mg PO QAM atorvastatin 20 mg Tablet 10 mg PO HS garlic 1,000 mg Capsule 1,000 mg PO QAM multivitamin Tablet,Chewable 2 tab PO QAM cholecalciferol (vitamin D3) [Vitamin D3] 50 mcg (2,000 unit) Capsule 50 mcg PO QAM levothyroxine 200 mcg tablet 200 mcg PO QAM lisinopril-hydrochlorothiazide 10-12.5 mg Tablet 0.5 tab PO DAILY vit C-vit D-[id number]-ecq-[id number]-3 [id number] xa-[id number]-eb-mg Capsule 1 cap PO BID Discontinued diltiazem HCl 300 mg Tablet Extended Release 24 Hr 300 mg PO QAM Discharge Orders: Discharge Order (Routine); Ordered 12/08/22 Ordered By: Ally Proctor/Other Patient Handouts: Apixaban Oral Tablet, AFib Dc Admission Data Admit Date/Time: 12/07/22 20:19 Attending Provider: Brett Wiley Admit Provider: Kinga Henderson Primary Care Provider: Sierra Garrett Other Providers: Baltazar Doe Other Interventions: Discharge Summary Assessment (RN) Last Done: 12/08/22 17:30 Supervising Physician Co-Signing Physician Notes I personally examined the patient and verified all chance points of history and exam, discussed case, and agree with decision making with Ana Maria Lozada and Dr Davies Feeling better and would like to go home. Extensive discussion on findings and treatment and plan. Vitals noted, in general he is awake and alert pleasant no distress. HEENT normocephalic atraumatic mucous membranes moist. Breathing unlabored no accessory muscle use good effort. Skin shows no rashes no pallor or icterus. Neuro without focal deficits. 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 Started on doxycycline, already feeling betterstable for discharge to homefinish out outpatient course of Doxy. Discussed sun sensitivity and esophagitis risk, discussed the small possibility of babesia insteadmaking it simple by saying if he still has fevers by 48 hours from now to call the office. Stable for home, repeat CBC after treatment atrial fibrillationnew diagnosis, suspect chronic or paroxysmalunearthed largely in the midst of the work-up of his anaplasmosis. Rate control with metoprolol, anticoagulation. (anticipate rising platelets with treatment of anaplasma over the next few days, repeat CBC to be done next week - bleed risk low given the overall situation) Systolic cardiomyopathysuspect A-fib/rate relatedgiven that his A-fib is of unknown duration. 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 Treat as above, repeat echocardiogram, anticipate improvement. We will also have him see cardiology as an outpatient, but given that he had no ischemic symptoms, no troponin elevation, and very much wanted to go home, safe to have outpt w/u - messaged [facility] cardiology who had been aware of his situation and noted they will see in the office. afterload reduction -- can titrate if needed as outpt but will hold on adjustments with this for now since starting metoprolol for above and will not want to drop BP too much.
--- NOTE | 2022-12-08 18:51 | Billing Data ---
Date of Service December 08, 2022 Coding Level of Care Code 48976 INP/OBS DISCH >30 MIN
--- NOTE | 2022-12-09 23:04 | Electrocardiogram Report ---
Test Reason : Blood Pressure : / mmHG Vent. Rate : 108 BPM Atrial Rate : 000 BPM P-R Int : 000 ms QRS Dur : 122 ms QT Int : 340 ms P-R-T Axes : 000 -42 072 degrees QTc Int : 455 ms Atrial fibrillation with rapid ventricular response Left axis deviation Non-specific intra-ventricular conduction block Possible Septal infarct Abnormal ECG When compared with ECG of 11-MAR-2020 10:35, Atrial fibrillation has replaced Sinus rhythm Vent. rate has increased BY 49 BPM Confirmed by Gurpreet Wilkinson ([id number]) on 12/09/2022 11:04:43 PM Referred By: Sierra Garrett Confirmed By:Gurpreet Wilkinson
--- NOTE | 2022-12-10 05:07 | Billing Data ---
Date of Service December 10, 2022 Coding Level of Care Code 84224 INT INP/OBS CARE
--- NOTE | 2022-12-10 05:51 | Electrocardiogram Report ---
Test Reason : Blood Pressure : / mmHG Vent. Rate : 105 BPM Atrial Rate : 000 BPM P-R Int : 000 ms QRS Dur : 118 ms QT Int : 342 ms P-R-T Axes : 000 -41 079 degrees QTc Int : 452 ms Atrial fibrillation with rapid ventricular response Left axis deviation Possible Septal infarct , age undetermined Abnormal ECG When compared with ECG of 07-Dec-2022, No significant change Confirmed by Gurpreet Wilkinson ([id number]) on 12/10/2022 5:51:33 AM Referred By: Sierra Garrett Confirmed By:Gurpreet Wilkinson
[2022-12-15 01:06] LABS: Ehrlichia chaff IgG Ab <1:64 (<1:64); Ehrlichia chaff IgM Ab <1:20 (<1:20)
== END 2022-12-08 18:44 | disposition home or self-care (01) | DRG 309 ==
LOC: ED 17:48 → 2S 20:19 → SUATTDRO 20:19 → 2S 20:48